=== PATIENT | male | born 1930 | race Caucasian/White ===

== ENCOUNTER 2017-06-29 08:20 | Emergency (ER) | payer MEDICARE, BC ==
[2017-06-29] MEDS ORDERED: Lidocaine 2% Jelly 10 ML Urojet ONE (08:31)
[2017-06-29] MEDS ORDERED: Bisacodyl 10 MG Supp RECTAL ONE (08:56)
[2017-06-29] MEDS ORDERED: Bisacodyl 10 MG Supp ONE (08:56)
--- NOTE | 2017-06-29 09:13 | EDM.PDOC ---
ED HPI GENERAL MEDICAL PROBLEM - General Chief Complaint: Genitourinary Problem Stated Complaint: CANNOT PEE Time Seen by Provider: 06/29/17 09:00 Source of Information: Reports: Patient History Limitations: Reports: No Limitations - History of Present Illness INITIAL COMMENTS - FREE TEXT/NARRATIVE: pt arrived with pain going down the back of the left leg. He is constipated . Pt is not able to void. he had 700 in his bladdr and a vergara cath was inserted for drainage. Onset: Gradual, Other (pt fell 2-3 days ago. ) Duration: Hour(s): Location: Reports: Back, Pelvis Associated Symptoms: Reports: No Other Symptoms Left Abdominal Pain Score (Numeric/FACES): 8 - Related Data Allergies Allergy/AdvReac Type Severity Reaction Status Date / Time No Known Allergies Allergy Verified 06/29/17 08:45 Home Meds: Home Meds Aspirin 325 mg PO DAILY 06/29/17 [History] Cholecalciferol (Vitamin D3) [Vitamin D3] 1,000 unit PO DAILY 06/29/17 [History] Magnesium 400 mg PO DAILY 06/29/17 [History] Omeprazole Magnesium [Prilosec Otc] 20 mg PO DAILY 06/29/17 [History] Sennosides/Docusate Sodium [Senna-Docusate Sodium Tablet] 2 tab PO DAILY [History] oxyCODONE 5 mg PO Q6H PRN 06/29/17 [History] Past Medical History HEENT History: Reports: Hard of Hearing, Impaired Vision Cardiovascular History: Reports: ND Oncologic (Cancer) History: Reports: Other (See Below) Other Oncologic History: pre cancerous - Past Surgical History Respiratory Surgical History: Reports: Lung Resection GI Surgical History: Reports: Colon, Colonoscopy Other Male Surgeries/Procedures: right kidney removed. Social & Family History - Tobacco Use Smoking Status *Q: Never Smoker - Caffeine Use Caffeine Use: Reports: Tea - Recreational Drug Use Recreational Drug Use: No ED ROS GENERAL - Review of Systems Review Of Systems: See Below Constitutional: Reports: No Symptoms HEENT: Reports: No Symptoms Respiratory: Reports: No Symptoms Cardiovascular: Reports: No Symptoms Endocrine: Reports: No Symptoms GI/Abdominal: Reports: No Symptoms, Constipation : Reports: Urinary Retention Musculoskeletal: Reports: No Symptoms Skin: Reports: No Symptoms Neurological: Reports: No Symptoms ED EXAM, RENAL/ - Physical Exam Exam: See Below Text/Narrative:: pt arrived stating that he fell 1 week ago. He hit his left hip. He had xrays in [place] of his left hip and his pelvis and these were neg. He now is not able to void and he is constipated. Exam Limited By: No Limitations General Appearance: Alert, Moderate Distress Ears: Normal TMs Nose: Normal Inspection Throat/Mouth: Normal Inspection Head: Atraumatic Neck: Normal Inspection Respiratory/Chest: No Respiratory Distress Cardiovascular: Regular Rate, Rhythm GI/Abdominal: Soft, Non-Tender (Male) Exam: Other ( bladder scan showed 750 cc) Rectal (Males) Exam: Other ( rectal exam shower a large amount of stool in the rectal area. ) Back Exam: Normal Inspection Extremities: Normal Inspection, Other ( He is tender over the left post hip area. ) Neurological: Alert, Oriented, Normal Cognition Psychiatric: Normal Affect Course - Vital Signs Last Recorded V/S: Last Vital Signs Temp 35.4 C 06/29/17 08:33 Pulse 87 06/29/17 08:33 Resp 18 06/29/17 08:33 BP 153/79 H 06/29/17 08:33 Pulse Ox 98 06/29/17 08:33 - Orders/Labs/Meds Labs: Laboratory Tests 06/29/17 Range/Units 08:41 Urine Color Yellow Urine Appearance Slightly cloudy Urine pH 7.0 (4.5-8.0) Ur Specific [place] 1.010 (1.008-1.030) Urine Protein Negative (NEGATIVE) mg/dL Urine Glucose (UA) Normal (NEGATIVE) mg/dL Urine Ketones Negative (NEGATIVE) mg/dL Urine Occult Blood Negative (NEGATIVE) Urine Nitrite Negative (NEGAITVE) Urine Bilirubin Negative (NEGATIVE) Urine Urobilinogen Normal (NORMAL) mg/dL Ur Leukocyte Esterase Negative (NEGATIVE) Urine RBC 0-5 (0-5) Urine WBC Not seen (0-5) Ur Epithelial Cells Rare Amorphous Sediment Rare Urine Bacteria Not seen Urine Mucus Not seen Meds: Medications Discontinued Medications Generic Name Dose Route Start Last Admin Trade Name Freq PRN Reason Stop Dose Admin Bisacodyl 10 mg 06/29/17 08:56 06/29/17 09:55 Dulcolax RECTAL 06/29/17 08:57 10 mg ONETIME ONE Administration Bisacodyl Confirm 06/29/17 08:56 06/29/17 09:55 Dulcolax Administered 06/29/17 08:57 Not Given Dose 10 mg .ROUTE .STK-MED ONE Lidocaine HCl Confirm 06/29/17 08:31 06/29/17 09:55 Xylocaine 2% Jelly Administered 06/29/17 08:32 Not Given Dose 10 ml .ROUTE .STK-MED ONE Lidocaine HCl 10 ml 06/29/17 09:55 06/29/17 10:17 Xylocaine 2% Jelly MUCMEM 06/29/17 09:56 10 ml ONETIME ONE Administration - Re-Assessments/Exams Free Text/Narrative Re-Assessment/Exam: 06/29/17 10:37 vergara was inserted for drainage, pt was given a ducolax supp with good results, xrays of the lumbar spine was obtained which showed degenerative changes but no acute fractures. His urine ws not infected. Departure - Departure Time of Disposition: 10:29 Disposition: Home, Self-Care 01 Condition: Fair Clinical Impression: Lumbar contusion - Discharge Information Instructions: Vergara Catheter Care, Adult, [id number] Referrals: Jamari Walsh MD [Primary Care Provider] - Forms: ED Department Discharge Care Plan Goals: heat or ice to the leg and back area, tylenol or motrin 400mg for pain, If the pain gets severe use 1/2 tab of the ocycodone for relief. Use prunes and high fiber to keep the stools soft, leave the cath in with a leg bag today. When he goes to the [facility] tomorrow it can be removed.
--- NOTE | 2017-06-29 09:30 | CR ---
Lumbar Spine Min 4V HISTORY: pain in the left leg--going down the back of the le FINDINGS: There is mild rotoscoliosis of the lower lumbar spine convex to the left. Left lateral subl uxation is present at L4-5. Anterolateral osteophytes are noted diffusely, most prominent at L4-5 and L5-S1. There is prominent degenerative narrowing of the disc space at L3-4 and L4-5. Moderate narrow ing is present at L5-S1. There is mild to moderate narrowing of the disc space at L1-2 and L2-3. No c ompression fracture is identified. There is probable facet arthropathy lower lumbar spine at L4-5 and L5-S1. Atherosclerotic aorta is noted. 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 Very m ild rotoscoliosis of the lower lumbar spine convex to the left is noted. There appears to be some lef t lateral subluxation at L4-5. Alignment remains stable with flexion and extension.
[2017-06-29] MEDS ORDERED: Lidocaine 2% Jelly 10 ML Urojet MUCMEM ONE (09:55)
== END 2017-06-29 10:49 | disposition home or self-care (01) ==
LOC: JP.ED 08:20
DX: S30.0XXA Contusion of lower back and pelvis, initial encounter (principal); K59.00 Constipation, unspecified; Z79.82 Long term (current) use of aspirin; Z79.899 Other long term (current) drug therapy; X58.XXXA Exposure to other specified factors, initial encounter
CPT/HCPCS: 51702; 51798; 72110; 81001; 99284; A9270; 99283